=== PATIENT | female | born 1955 | race Caucasian/White ===

== ENCOUNTER → 2017-03-02 | Outpatient (CLI) | payer OTHER ==
[2016-05-01 07:45] VITALS: BP 126/80
[~2017-03-02] MED LIST: PENTASA500 MG PO; PREMARIN VAG42.5 GM VG
== END ==
LOC: MAMMO 08:50
DX: Z12.31 Encounter for screening mammogram for malignant neoplasm of breast (principal)
CPT/HCPCS: G0202

== ENCOUNTER → 2017-04-01 | Outpatient (CLI) | payer OTHER ==
[2016-05-01 07:45] VITALS: BP 126/80
== END ==
LOC: RAD 08:59
DX: Z13.820 Encounter for screening for osteoporosis (principal); M85.80 Other specified disorders of bone density and structure, unspecified site

== ENCOUNTER → 2018-03-16 | Outpatient (CLI) | payer OTHER ==
[2016-05-01 07:45] VITALS: BP 126/80
[2018-03-16 08:16] LABS: ALBUMIN 4.3 g/dL (3.5-5.0); ALT/SGPT 20 U/L (9-52); AST-SGOT 21 U/L (14-36); BUN/CREATININE RATIO 20.5 (6.0-26.0); CALCIUM 9.1 mg/dL (8.4-10.2); CARBON DIOXIDE 27 mmol/L (22-30); GLUCOSE 98 mg/dL (65-105); POTASSIUM 4.5 mmol/L (3.6-5.0); SODIUM 142 mmol/L (137-145); TOTAL BILIRUBIN 0.4 mg/dL (0.2-1.3); TOTAL PROTEIN 7.9 g/dL (6.3-8.2)
[2018-03-16 08:43] LABS: EOS # 0.2 (0.04-0.40); EOS % 5.5 % (1.0-5.0); HEMATOCRIT 42.1 % (37.0-47.0); HEMOGLOBIN 13.6 g/dL (12.5-16.0); LYMPH# 1.1 (1.50-4.00); MEAN CELL VOLUME 95 fl (78-100); MEAN CORPUSCULAR HEMOGLOBIN 31 pg (27-31); MEAN CORPUSCULAR HGB CONC 32 g/dL (33-37); MONO # 0.5 (0.20-0.80); NEU # 2.3 (1.40-6.50); PLATELET COUNT 274 K/mm3 (130-400); RED BLOOD COUNT 4.43 M/mm3 (4.10-5.30); WHITE BLOOD COUNT 4.2 K/mm3 (4.8-10.8)
[2018-03-17 02:19] LABS: T3 TOTAL 101 ng/dL (87-178)
== END ==
LOC: LAB 07:50
PROVIDERS: Nurse Practitioner Family
DX: Z01.419 Encounter for gynecological examination (general) (routine) without abnormal findings (principal); R63.5 Abnormal weight gain; Z13.220 Encounter for screening for lipoid disorders; R53.81 Other malaise

== ENCOUNTER → 2019-04-10 | Outpatient (CLI) | payer OTHER ==
[2016-05-01 07:45] VITALS: BP 126/80
[2019-04-10 17:09] LABS: EOS # 0.1 (0.04-0.40); EOS % 1.3 % (1.0-5.0); HEMATOCRIT 42.9 % (37.0-47.0); HEMOGLOBIN 13.9 g/dL (12.5-16.0); LYMPH# 1.1 (1.50-4.00); MEAN CELL VOLUME 96 fl (78-100); MEAN CORPUSCULAR HEMOGLOBIN 31 pg (27-31); MEAN CORPUSCULAR HGB CONC 32 g/dL (33-37); MEAN PLATELET VOLUME 9.4 fl (7.4-10.4); MONO # 0.6 (0.20-0.80); NEU # 3.7 (1.40-6.50); PLATELET COUNT 315 K/mm3 (130-400); RED BLOOD COUNT 4.48 M/mm3 (4.10-5.30); RED CELL DISTRIBUTION WIDTH 13.3 % (11.5-14.5); WHITE BLOOD COUNT 5.6 K/mm3 (4.8-10.8)
[2019-04-10 17:35] LABS: ALBUMIN 4.3 g/dL (3.4-4.8); CALCIUM 9.8 mg/dL (8.3-10.5); POTASSIUM 4.2 mmol/L (3.5-5.1); TOTAL BILIRUBIN 0.5 mg/dL (0.2-1.2); TOTAL PROTEIN 7.3 g/dL (6.2-8.1)
== END ==
LOC: LAB 16:39
PROVIDERS: Family Medicine
DX: Z01.419 Encounter for gynecological examination (general) (routine) without abnormal findings (principal); E78.5 Hyperlipidemia, unspecified; E03.9 Hypothyroidism, unspecified

== ENCOUNTER → 2019-04-27 | Outpatient (CLI) | payer OTHER ==
[2016-05-01 07:45] VITALS: BP 126/80
== END ==
LOC: RAD 13:01
DX: M41.86 Other forms of scoliosis, lumbar region (principal); M46.86 Other specified inflammatory spondylopathies, lumbar region; R59.9 Enlarged lymph nodes, unspecified; Z90.49 Acquired absence of other specified parts of digestive tract

== ENCOUNTER → 2019-06-27 | Outpatient (CLI) | payer OTHER ==
[2016-05-01 07:45] VITALS: BP 126/80
[2019-06-27 13:39] LABS: ALBUMIN 4.3 g/dL (3.4-4.8); POTASSIUM 4.2 mmol/L (3.5-5.1)
[2019-06-27 13:40] LABS: CALCIUM 9.5 mg/dL (8.3-10.5)
[2019-06-27 13:41] LABS: TOTAL PROTEIN 7.5 g/dL (6.2-8.1)
[2019-06-27 13:43] LABS: TOTAL BILIRUBIN 0.5 mg/dL (0.2-1.2)
== END ==
LOC: LAB 13:14
PROVIDERS: Internal Medicine Gastroenterology
DX: R10.84 Generalized abdominal pain (principal); R19.7 Diarrhea, unspecified

== ENCOUNTER → 2019-07-20 | Outpatient (CLI) | payer OTHER ==
[2016-05-01 07:45] VITALS: BP 126/80
== END ==
LOC: LAB 08:31
DX: R10.84 Generalized abdominal pain (principal); R19.7 Diarrhea, unspecified

== ENCOUNTER → 2019-09-26 | Outpatient (CLI) | payer OTHER ==
[2016-05-01 07:45] VITALS: BP 126/80
== END ==
LOC: LAB 15:59
DX: Z01.419 Encounter for gynecological examination (general) (routine) without abnormal findings (principal); Z13.220 Encounter for screening for lipoid disorders; E03.9 Hypothyroidism, unspecified

== ENCOUNTER → 2020-04-01 | Outpatient (CLI) | payer OTHER ==
[2016-05-01 07:45] VITALS: BP 126/80
[2020-04-01 14:51] LABS: EOS # 0.1 (0.04-0.40); EOS % 1.3 % (1.0-5.0); HEMATOCRIT 40.3 % (37.0-47.0); HEMOGLOBIN 13.3 g/dL (12.5-16.0); LYMPH# 1.2 (1.50-4.00); MEAN CELL VOLUME 94 fl (78-100); MEAN CORPUSCULAR HEMOGLOBIN 31 pg (27-31); MEAN CORPUSCULAR HGB CONC 33 g/dL (33-37); MEAN PLATELET VOLUME 9.7 fl (7.4-10.4); MONO # 0.7 (0.20-0.80); NEU # 4.3 (1.40-6.50); PLATELET COUNT 269 K/mm3 (130-400); RED BLOOD COUNT 4.27 M/mm3 (4.10-5.30); WHITE BLOOD COUNT 6.2 K/mm3 (4.8-10.8)
[2020-04-01 14:55] LABS: POTASSIUM 4.1 mmol/L (3.5-5.1)
[2020-04-01 14:56] LABS: ALBUMIN 4.3 g/dL (3.4-4.8)
[2020-04-01 14:57] LABS: CALCIUM 9.2 mg/dL (8.3-10.5)
[2020-04-01 14:58] LABS: TOTAL PROTEIN 7.5 g/dL (6.2-8.1)
[2020-04-01 15:00] LABS: TOTAL BILIRUBIN 0.5 mg/dL (0.2-1.2)
== END ==
LOC: LAB 14:32
PROVIDERS: Family Medicine
DX: Z01.419 Encounter for gynecological examination (general) (routine) without abnormal findings (principal); E78.5 Hyperlipidemia, unspecified; E03.9 Hypothyroidism, unspecified; M85.80 Other specified disorders of bone density and structure, unspecified site; K52.9 Noninfective gastroenteritis and colitis, unspecified

== ENCOUNTER 2020-04-24 20:39 | Emergency (ER) | payer OTHER ==
[2020-04-24 21:35] VITALS: BP 153/109
== END 2020-04-24 21:38 | disposition home or self-care (01) ==
LOC: ED 20:39
DX: S01.511A Laceration without foreign body of lip, initial encounter (principal); Z96.653 Presence of artificial knee joint, bilateral; W01.0XXA Fall on same level from slipping, tripping and stumbling without subsequent striking against object, initial encounter; Y92.009 Unspecified place in unspecified non-institutional (private) residence as the place of occurrence of the external cause
CPT/HCPCS: 90714

== ENCOUNTER → 2020-05-08 | Outpatient (CLI) | payer OTHER ==
[2020-04-24 21:35] VITALS: BP 153/109
== END ==
LOC: MAMMO 14:54
DX: Z12.31 Encounter for screening mammogram for malignant neoplasm of breast (principal)

== ENCOUNTER → 2021-09-05 | Outpatient (CLI) | payer MEDICARE, OTHER ==
[2021-09-05 10:29] LABS: BASO # 0.03 K/mm3 (0.02-0.10); EOS # 0.19 K/mm3 (0.04-0.40); EOS % 4.7 % (1.0-5.0); HEMATOCRIT 40.7 % (37.0-47.0); HEMOGLOBIN 13.3 g/dL (12.5-16.0); LYMPH# 0.74 K/mm3 (1.50-4.00); MEAN CELL VOLUME 95 fl (78-100); MEAN CORPUSCULAR HEMOGLOBIN 31 pg (27-31); MEAN CORPUSCULAR HGB CONC 33 g/dL (33-37); MEAN PLATELET VOLUME 9.1 fl (7.4-10.4); MONO # 0.47 K/mm3 (0.20-0.80); NEU # 2.58 K/mm3 (1.40-6.50); PLATELET COUNT 255 K/mm3 (130-400); RED BLOOD COUNT 4.28 M/mm3 (4.10-5.30); RED CELL DISTRIBUTION WIDTH 12.5 % (11.5-14.5)
[2021-09-05 11:42] LABS: ALBUMIN 4.1 g/dL (3.4-4.8); POTASSIUM 4.5 mmol/L (3.5-5.1)
[2021-09-05 11:43] LABS: CALCIUM 9.5 mg/dL (8.3-10.5)
[2021-09-05 11:45] LABS: TOTAL PROTEIN 7.6 g/dL (6.2-8.1)
[2021-09-05 11:47] LABS: TOTAL BILIRUBIN 0.5 mg/dL (0.2-1.2)
== END ==
LOC: LAB 09:44
PROVIDERS: Family Medicine
DX: Z00.00 Encounter for general adult medical examination without abnormal findings (principal); E55.9 Vitamin D deficiency, unspecified; E78.5 Hyperlipidemia, unspecified

== ENCOUNTER → 2022-07-23 | Outpatient (CLI) | payer MEDICARE, OTHER | LOC: RAD 18:33 | DX: M47.816 Spondylosis without myelopathy or radiculopathy, lumbar region (principal); M48.061 Spinal stenosis, lumbar region without neurogenic claudication; M48.07 Spinal stenosis, lumbosacral region ==

== ENCOUNTER → 2022-09-16 | Outpatient (CLI) | payer MEDICARE, OTHER ==
[2022-09-16 11:10] LABS: BASO # 0.02 K/mm3 (0.02-0.10); EOS # 0.19 K/mm3 (0.04-0.40); EOS % 2.1 % (1.0-5.0); HEMATOCRIT 41.1 % (37.0-47.0); HEMOGLOBIN 13.5 g/dL (12.5-16.0); LYMPH# 1.14 K/mm3 (1.50-4.00); MEAN CELL VOLUME 94 fl (78-100); MEAN CORPUSCULAR HEMOGLOBIN 31 pg (27-31); MEAN CORPUSCULAR HGB CONC 33 g/dL (33-37); MEAN PLATELET VOLUME 9.1 fl (7.4-10.4); MONO # 0.96 K/mm3 (0.20-0.80); NEU # 6.82 K/mm3 (1.40-6.50); PLATELET COUNT 248 K/mm3 (130-400); RED BLOOD COUNT 4.37 M/mm3 (4.10-5.30); RED CELL DISTRIBUTION WIDTH 11.7 % (11.5-14.5); WHITE BLOOD COUNT 9.2 K/mm3 (4.8-10.8)
[2022-09-16 11:18] LABS: POTASSIUM 4.6 mmol/L (3.5-5.1)
[2022-09-16 11:19] LABS: ALBUMIN 4.4 g/dL (3.4-4.8)
[2022-09-16 11:20] LABS: CALCIUM 10.2 mg/dL (8.3-10.5)
[2022-09-16 11:23] LABS: TOTAL BILIRUBIN 0.6 mg/dL (0.2-1.2)
== END ==
LOC: LAB 10:18
PROVIDERS: Family Medicine
DX: Z00.00 Encounter for general adult medical examination without abnormal findings (principal); Z12.31 Encounter for screening mammogram for malignant neoplasm of breast; Z13.820 Encounter for screening for osteoporosis; E78.5 Hyperlipidemia, unspecified; J01.90 Acute sinusitis, unspecified; L03.211 Cellulitis of face; F41.9 Anxiety disorder, unspecified; N95.2 Postmenopausal atrophic vaginitis; K52.9 Noninfective gastroenteritis and colitis, unspecified; M17.9 Osteoarthritis of knee, unspecified; M85.80 Other specified disorders of bone density and structure, unspecified site; E55.9 Vitamin D deficiency, unspecified; E66.3 Overweight; Z80.0 Family history of malignant neoplasm of digestive organs; Z28.39 Other underimmunization status

== ENCOUNTER → 2022-09-30 | Outpatient (CLI) | payer MEDICARE, OTHER | LOC: MAMMO 15:09 | DX: Z12.31 Encounter for screening mammogram for malignant neoplasm of breast (principal) ==

== ENCOUNTER → 2022-09-30 | Outpatient (CLI) | payer MEDICARE, OTHER | LOC: RAD 15:11 → MAMMO 15:15 | DX: Z13.820 Encounter for screening for osteoporosis (principal); M85.80 Other specified disorders of bone density and structure, unspecified site; Z78.0 Asymptomatic menopausal state ==

== ENCOUNTER 2022-11-17 08:58 | Outpatient (RCR) | payer MEDICARE, OTHER | END 2022-12-01 | disposition home or self-care (01) | LOC: OT | DX: M18.11 Unilateral primary osteoarthritis of first carpometacarpal joint, right hand (principal) ==

== ENCOUNTER → 2023-10-01 | Outpatient (CLI) | payer MEDICARE, OTHER | LOC: LAB 14:19 | DX: Z00.00 Encounter for general adult medical examination without abnormal findings (principal); M85.80 Other specified disorders of bone density and structure, unspecified site; M51.36 Other intervertebral disc degeneration, lumbar region; D80.2 Selective deficiency of immunoglobulin A [IgA]; E66.3 Overweight; J30.2 Other seasonal allergic rhinitis; E78.2 Mixed hyperlipidemia; R73.02 Impaired glucose tolerance (oral) ==

== ENCOUNTER → 2023-12-01 | Outpatient (CLI) | payer MEDICARE, OTHER | LOC: RAD 14:40 | DX: M51.37 Other intervertebral disc degeneration, lumbosacral region (principal); M47.816 Spondylosis without myelopathy or radiculopathy, lumbar region; M25.552 Pain in left hip ==

== ENCOUNTER 2023-12-20 09:17 | Outpatient (RCR) | payer MEDICARE, OTHER | END 2023-12-30 | disposition home or self-care (01) | LOC: PT | DX: M51.36 Other intervertebral disc degeneration, lumbar region (principal) ==

== ENCOUNTER → 2024-11-15 | Outpatient (CLI) | payer MEDICARE, OTHER ==
[2024-11-15 09:04] LABS: BASO # 0.03 K/mm3 (0.02-0.10); EOS # 0.13 K/mm3 (0.04-0.40); EOS % 2.8 % (1.0-5.0); HEMATOCRIT 42.2 % (37.0-47.0); HEMOGLOBIN 13.9 g/dL (12.5-16.0); LYMPH# 0.99 K/mm3 (1.50-4.00); MEAN CELL VOLUME 95 fl (78-100); MEAN CORPUSCULAR HEMOGLOBIN 31 pg (27-31); MEAN CORPUSCULAR HGB CONC 33 g/dL (33-37); MEAN PLATELET VOLUME 9.4 fl (7.4-10.4); MONO # 0.44 K/mm3 (0.20-0.80); NEU # 2.99 K/mm3 (1.40-6.50); PLATELET COUNT 277 K/mm3 (130-400); RED BLOOD COUNT 4.44 M/mm3 (4.10-5.30); RED CELL DISTRIBUTION WIDTH 12.2 % (11.5-14.5); WHITE BLOOD COUNT 4.6 K/mm3 (4.8-10.8)
[2024-11-15 23:56] LABS: INSULIN 11 uIU/mL (2-23)
== END ==
LOC: LAB 08:49
PROVIDERS: Physician Assistant
DX: E78.5 Hyperlipidemia, unspecified (principal); E55.9 Vitamin D deficiency, unspecified

== ENCOUNTER → 2024-11-29 | Outpatient (CLI) | payer MEDICARE, OTHER | LOC: MAMMO 10:55 | DX: Z12.31 Encounter for screening mammogram for malignant neoplasm of breast (principal) ==

== ENCOUNTER → 2024-11-29 | Outpatient (CLI) | payer MEDICARE, OTHER | LOC: RAD 11:03 → MAMMO 11:30 | DX: Z13.820 Encounter for screening for osteoporosis (principal); M85.80 Other specified disorders of bone density and structure, unspecified site ==

== ENCOUNTER 2025-02-01 18:46 | Emergency (ER) | payer MEDICARE, OTHER ==
[~2025-02-01] VITALS: Wt 70.5 kg
[2025-02-01] MEDS ORDERED: NS 1,000 ML IV SCH (19:45)
[2025-02-01] MEDS ORDERED: Ondansetron 4 MG/2 ML VIAL IV ONE (19:45)
[2025-02-01 19:58] LABS: HEMATOCRIT 45.5 % (37.0-47.0); HEMOGLOBIN 14.9 g/dL (12.5-16.0); MEAN CELL VOLUME 94 fl (78-100); MEAN CORPUSCULAR HEMOGLOBIN 31 pg (27-31); MEAN CORPUSCULAR HGB CONC 33 g/dL (33-37); MEAN PLATELET VOLUME 9.2 fl (7.4-10.4); PLATELET COUNT 256 K/mm3 (130-400); RED BLOOD COUNT 4.84 M/mm3 (4.10-5.30); RED CELL DISTRIBUTION WIDTH 12.7 % (11.5-14.5); WHITE BLOOD COUNT 9.7 K/mm3 (4.8-10.8)
[2025-02-01 20:05] LABS: ALBUMIN 4.4 g/dL (3.4-4.8)
[2025-02-01] MEDS ORDERED: PHENTERMINE15 MG PO (20:05)
[2025-02-01] MEDS ORDERED: AZELASTINE137 MCG/Ac NS (20:05)
[2025-02-01] MEDS ORDERED: COLESTIPOL HYDRO1 GM PO (20:05)
[2025-02-01] MEDS ORDERED: TOPIRAMATE25 MG PO (20:05)
[2025-02-01 20:06] LABS: CALCIUM 9.8 mg/dL (8.3-10.5)
[2025-02-01] MEDS ORDERED: ATORVASTATIN CA40 MG PO (20:06)
[2025-02-01 20:09] LABS: TOTAL BILIRUBIN 0.9 mg/dL (0.2-1.2)
[2025-02-01 20:16] LABS: LYMPHOCYTE 4 % (20-51); MONOCYTE 5 % (3-10)
[2025-02-01 20:17] LABS: BAND 2 % (0-10); NEUTROPHILS 88 % (42-75)
[2025-02-01] MEDS ORDERED: Home Ondansetron ODT 4 MG #2 ODT/PACK PO ONE (20:45)
[2025-02-01] MEDS ORDERED: ZOFRAN ODT4 MG PO (20:46)
[2025-02-01 21:36] VITALS: BP 148/85
== END 2025-02-01 21:36 | disposition home or self-care (01) ==
LOC: ED 18:46
PROVIDERS: Physician Assistant
DX: R11.2 Nausea with vomiting, unspecified (principal); R19.7 Diarrhea, unspecified; R79.89 Other specified abnormal findings of blood chemistry
CPT/HCPCS: J2405; J7030